=== PATIENT | male | born 1980 | race Caucasian/White ===

== ENCOUNTER 2020-05-31 13:36 | Emergency (ER) | payer OTHER, SELFPAY ==
--- NOTE | ~2020-05-31 | XR_ITS ---
XR wrist RT min 3V 05/31/2020 14:05 INDICATION: Right wrist pain PROCEDURE: For views right wrist COMPARISON: No prior studies for comparison. FINDINGS: Fracture, dislocation or subluxation is not identified. The soft tissues appear within norm al limits. No foreign bodies are identified. IMPRESSION: 1: NO ACUTE BONE OR JOINT ABNORMALITY IDENTIFIED. Reviewed, dictated and finalized at location B.
--- NOTE | ~2020-05-31 | XR_ITS ---
XR ankle RT min 3V, XR foot RT min 3V 05/31/2020 14:05 Indication: Right foot and ankle pain after fall Procedure: 4 views right ankle and 4 views right foot Comparison: No prior studies for comparison. Findings: There is a mildly displaced oblique intra-articular fracture posterior malleolus. Ankle mor tise otherwise intact. Talar dome is unremarkable. There is osteoarthritis of the first MTP joint wit h subluxation dorsally. Lisfranc joint intact. Impression: 1: Mildly displaced oblique intra-articular fracture posterior malleolus. 2: Dorsal subluxation of the first digit at the MTP joint. Reviewed, dictated and finalized at location B. Impression: 1: Mildly displaced oblique intra-articular fracture posterior malleolus. 2: Dorsal subluxation of the first digit at the MTP joint. Impression: 1: Mildly displaced oblique intra-articular fracture posterior malleolus. 2: Dorsal subluxation of the first digit at the MTP joint.
--- NOTE | ~2020-05-31 | XR_ITS ---
EXAMINATION: XR pelvis 1-2V DATE: 05/31/2020 14:05 INDICATION: Pelvic pain post fall TECHNIQUE: An anteroposterior view of the pelvis was obtained. COMPARISON: None. FINDINGS: Alignment is normal. No fracture. Joint spaces are normal. Soft tissues are unremarkable. IMPRESSION: 1. Negative pelvis radiographs. Reviewed, dictated and finalized at location A.
[2020-05-31 13:39] VITALS: BP 146/99; PULSE 78; RESP 20; TEMP 36.7; O2SAT 99
--- NOTE | 2020-05-31 13:45 | ED.LOWEXIN ---
HPI - Extremity Injury (Lower) General Chief Complaint: Extremity Injury, Lower Stated Complaint: Fall - R ankle deformity Source: patient Mode of arrival: ambulatory Limitations: no limitations History of Present Illness HPI Narrative: Patient is a 39-year-old male who presents to emergency department for evaluation of injuries related to falling down 10 stairs this morning patient presents per EMS noting right ankle pain right wrist pain and right hip pain patient denies other injuries or trauma was given 4 mg of morphine in route with improvement patient denies head injury syncope loss of consciousness Related Data Home Medications Medication Instructions Recorded Confirmed Unable to Obtain Home Medications 05/31/20 05/31/20 Allergies Allergy/AdvReac Type Severity Reaction Status Date / Time amoxicillin Allergy Unknown Verified 09/01/12 12:09 codeine Allergy Unknown Verified 09/01/12 12:09 tramadol Allergy Unknown Verified 09/01/12 12:09 Honey Bee Allergy Unknown Swelling Uncoded 08/09/19 16:17 Review of Systems Review of Systems: All systems reviewed & are unremarkable except as noted in HPI and below PMFSH Past Medical History Medical History (Updated 05/31/20 @ 15:16 by Dipak Johnson PA-C) PTSD (post-traumatic stress disorder) Family History Family History (Updated 07/13/14 @ 07:13 by DOCTOR UNKNOWN) Mother Family history of chronic obstructive pulmonary disease Family history of mental disorder Other Depression Social History Social History Smoking end date: 11/16/11 Alcohol intake: never Exam Narrative: Exam Narrative: GENERAL: Well-appearing, well-nourished, and in no acute distress. HEAD: Normocephalic, atraumatic. EYES: PERRLA and EOMI. ENT: Nares clear, no rhinorrhea or epistaxis. Mucous membranes moist. NECK: Supple. No adenopathy or masses. CHEST: Clear to auscultation. No respiratory distress. No wheezes rales or rhonchi HEART: Regular rate and rhythm. No murmur heard. Normal peripheral pulses. EXTREMITIES: Tenderness of the right wrist and hip with no deformities noted. Tenderness to the lateral aspect of the right ankle with minimal swelling noted. No cervical thoracic or lumbar tenderness SKIN: Warm, dry, no rash. NEURO: No focal deficits. Alert and oriented x3. Cranial nerves II through XII grossly intact. Neurovascularly intact. Normal speech PSYCH: Normal mood and affect. Course Course Emergency Course: Patient in the room aware of case findings treatment plan and diagnosis agreeing to follow-up with orthopedic surgery Consultations Consultation #1: Discussed case with orthopedic surgery who would like the patient to be splinted and will follow him in clinic Date: 05/31/20 Time: 15:13 Vital Signs Vital signs: Vital Signs Temperature 98.0 F 05/31/20 13:39 Pulse Rate 78 05/31/20 13:39 Respiratory Rate 20 05/31/20 13:39 Blood Pressure 146/99 H 05/31/20 13:39 Pulse Oximetry 99 05/31/20 13:39 Temperature 98.0 F 05/31/20 13:39 Pulse Rate 78 05/31/20 13:39 Respiratory Rate 05/31/20 13:39 Blood Pressure 146/99 H 05/31/20 13:39 Pulse Oximetry 99 05/31/20 13:39 MDM - Extremity Injury (Lower) MDM Narrative Medical decision making narrative: Patients injury or pain is consistent with musculoskeletal etiology. No signs of neurological or vascular compromise on exam. Compartments and tisues are soft without signs of compartment syndrome. Pain is felt appropriate for further evaluation on an outpatient basis. Patient was placed in splint will follow with orthopedic surgery Imaging Data Radiologist's impression: ITS Impressions Wrist X-Ray 05/31/20 14:11 IMPRESSION: 1: NO ACUTE BONE OR JOINT ABNORMALITY IDENTIFIED. Ankle X-Ray 05/31/20 14:14 Impression: 1: Mildly displaced oblique intra-articular fracture posterior malleolus. 2: Dorsal subluxation
[2020-05-31] MEDS: IBUPROFEN IV 800 MG/200 ML 800 MG/200 ML BAG 400 MG IVPB (14:37)
[2020-05-31 15:49] VITALS: BP 112/78; PULSE 64; RESP 16; O2SAT 99
--- NOTE | 2020-06-13 20:51 | PC.NURSE ---
late entry to chart- splint applied to right leg. positive pms
== END 2020-05-31 15:52 | disposition home or self-care (01) ==
PROVIDERS: Emergency Provider Emergency Medicine; PCP Internal Medicine
DX: S82.891A Other fracture of right lower leg, initial encounter for closed fracture (principal); W10.9XXA Fall (on) (from) unspecified stairs and steps, initial encounter
CPT/HCPCS: 29515; 72170; 73110; 73610; 73630; 96365; 96375; 99284; A9270; J1741; J3360

== ENCOUNTER 2020-06-08 01:25 | Outpatient (CLI) | payer OTHER, SELFPAY ==
[2020-06-09 18:47] LABS: SARS-CoV-2 RNA PCR Negative
== END 2020-06-08 01:26 | disposition home or self-care (01) ==
LOC: ANHCOVIDDT 01:26
PROVIDERS: PCP Internal Medicine; Visit Provider Orthopaedic Surgery
DX: Z01.812 Encounter for preprocedural laboratory examination (principal); Z11.59 Encounter for screening for other viral diseases
CPT/HCPCS: 87635; C9803; U0003

== ENCOUNTER 2020-06-14 11:02 | Outpatient (CLI) | payer OTHER, SELFPAY ==
--- NOTE | ~2020-06-14 | MR_ITS ---
EXAMINATION: MR foot RT wo con DATE: 06/14/2020 12:28 INDICATION: Unspecified dislocation of right toes. TECHNIQUE: Magnetic resonance imaging (MRI) of the right foot was performed without intravenous contr ast. Sequences included sagittal T1-weighted FSE and STIR FSE, long-axis PD-weighted FS FSE and PD-we ighted FSE, and short-axis PD-weighted FS FSE and T1-weighted FSE. COMPARISON: Right foot radiographs 05/31/2020 FINDINGS: There is dorsal dislocation of first proximal phalanx with respect to first metatarsal. No fracture. There is mild bone marrow edema in first metatarsal and first proximal phalanx, likely stre ss reaction. There are osteophytes at first metatarsophalangeal joint. There is a small effusion of f irst metatarsophalangeal joint. Lisfranc ligament is intact. There is mild tendinopathy of flexor mary grace lucis longus. There is extensive subcutaneous edema dorsally. IMPRESSION: 1. Dorsal dislocation of first proximal phalanx with respect to the metatarsal. Reviewed, dictated and finalized at location A.
== END 2020-06-14 11:03 | disposition home or self-care (01) ==
PROVIDERS: PCP Internal Medicine; Visit Provider Orthopaedic Surgery
DX: S93.104A Unspecified dislocation of right toe(s), initial encounter (principal); S82.391A Other fracture of lower end of right tibia, initial encounter for closed fracture; X58.XXXA Exposure to other specified factors, initial encounter
CPT/HCPCS: 73718

== ENCOUNTER 2020-06-15 00:21 | Outpatient (CLI) | payer OTHER, SELFPAY ==
[2020-06-15 20:43] LABS: SARS-CoV-2 RNA PCR Negative
== END 2020-06-15 00:22 | disposition home or self-care (01) ==
LOC: ANHCOVIDDT 00:21
PROVIDERS: PCP Internal Medicine; Visit Provider Orthopaedic Surgery
DX: Z01.818 Encounter for other preprocedural examination (principal); Z11.59 Encounter for screening for other viral diseases
CPT/HCPCS: 87635; C9803; U0003

== ENCOUNTER 2020-06-18 01:05 | Day surgery (SDC) | payer OTHER, SELFPAY ==
[2020-06-07 13:25] VITALS: BMI 24.2
--- NOTE | 2020-06-11 07:01 | WPDHPUPDATE1 ---
History and Physical Update Update Date/Time: 06/11/20 07:01 History and Physical has been reviewed, including an updated exam of the patient. There are NO changes in the patient's condition. Covid test negative. Risks, benefits, and alternatives have been discussed and questions answered. Patient agrees to proceed with procedure.
--- NOTE | 2020-06-11 07:37 | WPDANESEPPF ---
Anes - Initial Pre Proc Eval Procedure: Operation Date: 06/11/20 12:00 Proposed Procedures p Open Reduction Internal Fixation Right Ankle Fracture, Repair Right Hallux Dislocation - Juwan Leonard MD Date/Time: 06/11/20 07:37 Surgeon: Juwan Leonard MD Pre Op Diagnosis: Right Hallux Dislocation/ Right Ankle Fx Patient Data Age: 39 Gender: M Height: 1.68 m Weight: 68.04 kg Allergies Allergy/AdvReac Type Severity Reaction Status Date / Time amoxicillin Allergy Unknown Swelling Verified 06/18/20 11:32 bee venom protein (honey bee) Allergy Unknown Swelling Verified 06/18/20 11:32 codeine Allergy Unknown Headache, Verified 06/18/20 11:32 lips swelling tramadol Allergy Unknown testicle Verified 06/18/20 11:32 pain Home Medications Medication Instructions Recorded Confirmed Type albuterol sulfate 1 - 2 puff INHALATION DIRECTED 06/07/20 06/18/20 History PRN alprazolam 1 mg PO QID PRN 06/07/20 06/18/20 History clonazepam 1 mg PO HS 06/07/20 06/18/20 History fluticasone propionate 1 spray INTRANASAL DAILY PRN 06/07/20 06/18/20 History gabapentin 300 mg PO DAILY 06/07/20 06/18/20 History propranolol 20 mg PO BID 06/07/20 06/18/20 History sertraline 75 mg PO DAILY 06/13/20 06/18/20 History hydrocodone 5 mg-acetaminophen 325 1 tablet PO Q6H PRN #20 tablet 06/22/20 Rx mg tablet Patient hx anesthesia problems: none Family hx anesthesia problems: none PMFSH Past Medical History Medical History (Updated 06/08/20 @ 08:00 by Marietta Buenrostro, RT(R)) Anxiety Asthma BMI 25.0-25.9,adult Chronic GERD Chronic headaches Closed fracture of right ankle Constipation Depression Dislocation of toe of right foot Fracture of posterior malleolus of right tibia GERD (gastroesophageal reflux disease) Headache Nausea & vomiting PTSD (post-traumatic stress disorder) Right foot injury Seasonal allergies Stomach pain Vision abnormalities Weight loss Social History Social History Smoking packs per day: 1 Smoking cigarettes per day: 20.0 Years smoked: 6 Smoking pack-years: 6.00 Smoking status: Former smoker Smoking end date: 11/16/11 Additional smoking assessment comments: QUIT 3 YEARS AGO Alcohol intake: current Drinks per week: 35 Substance use: current Substance use type: marijuana Other substance usage details: 2002- ACID, COCAINE Last use: 06/07/2020 Gender identity (if verbalized by the patient): Male Anes - Eval Final PreProcedure Day of Procedure 06/11/20 07:37 Patient weight: normal Heart: regular rate and rhythm Lungs: clear to auscultation and normal air movement Airway: Mallampati scale class II Neurological: alert and oriented Last oral intake: >/= 8 hours ASA classification: III Emergent: no Anesthetic plan: proceed Anesthesia type and monitoring: general LMA and standard monitoring Informed Consent: The patient's anesthetic plan and its attendant risks and benefits were discussed with the patient/family/POA. Questions were solicited and answers provided to the satisfaction of the patient/family/POA.
[2020-06-18] VITALS (7 sets, daily range): BP systolic 107–131; BP diastolic 65–86; PULSE 60–78; RESP 9–16; TEMP 36.3–36.7; O2SAT 98–100; BMI 22.7
--- NOTE | ~2020-06-18 | XR_ITS ---
EXAMINATION: XR surgery orthopedic DATE: 06/18/2020 15:26 INDICATION: ORIF right ankle and right foot TECHNIQUE: Fluoroscopic spot images of the right foot and ankle were obtained during procedure perfor med by Dr. Leonard. Radiologist was not present for the imaging or procedure. The amount of fluorosco py time used during this procedure was 1.0 minutes. COMPARISON: Radiographs dated 05/31/2020 and 06/07/2020 and MRI dated 06/14/2020 FINDINGS: Initial images demonstrate anterior to posterior directed leg screw fixation across the posterior mal leolar fracture at the distal tibia. Alignment post fixation appears essentially anatomic including a congruent ankle mortise. The previously dislocated first metatarsophalangeal joint is been reduced t o essentially anatomic alignment. Round lucencies at the head of the first metatarsal and at the prox imal diaphysis of the first proximal phalanx likely represent suture anchor tracks for stabilization of the first metatarsophalangeal joint. No acute fractures identified. Joint spaces in the visualized right foot and ankle appear normal. IMPRESSION: 1. Fluoroscopy utilized during fixation of a posterior malleoli fracture at the right ankle and reduc tion and fixation of a previously dislocated right first metatarsophalangeal dislocation. See procedu re note for further detail. Reviewed, dictated and finalized at location A. IMPRESSION: 1. Fluoroscopy utilized during fixation of a posterior malleoli fracture at the right ankle and reduction and fixation of a previously dislocated right first metatarsophalangeal dislocation. See procedure note for further detail.
--- NOTE | 2020-06-18 11:55 | WPDANESEPPF ---
Anes - Initial Pre Proc Eval Procedure: Operation Date: 06/18/20 13:00 Proposed Procedures p Open Reduction Internal Fixation Right Ankle Fracture, Repair Right Hallux Dislocation - Juwan Leonard MD Date/Time: 06/18/20 11:55 Surgeon: Juwan Leonard MD Pre Op Diagnosis: Right Hallux Dislocation/ Right Ankle Fx Patient Data Age: 39 Gender: M Height: 5 ft 6 in Weight: 64 kg Allergies Allergy/AdvReac Type Severity Reaction Status Date / Time amoxicillin Allergy Unknown Swelling Verified 06/18/20 11:32 bee venom protein (honey bee) Allergy Unknown Swelling Verified 06/18/20 11:32 codeine Allergy Unknown Headache, Verified 06/18/20 11:32 lips swelling tramadol Allergy Unknown testicle Verified 06/18/20 11:32 pain Home Medications Medication Instructions Recorded Confirmed Type albuterol sulfate 1 - 2 puff INHALATION DIRECTED 06/07/20 06/18/20 History PRN alprazolam 1 mg PO QID PRN 06/07/20 06/18/20 History clonazepam 1 mg PO HS 06/07/20 06/18/20 History fluticasone propionate 1 spray INTRANASAL DAILY PRN 06/07/20 06/18/20 History gabapentin 300 mg PO DAILY 06/07/20 06/18/20 History propranolol 20 mg PO BID 06/07/20 06/18/20 History hydrocodone 5 mg-acetaminophen 325 1 tablet PO Q6H PRN #20 tablet 06/12/20 06/18/20 Rx mg tablet sertraline 75 mg PO DAILY 06/13/20 06/18/20 History Patient hx anesthesia problems: none Family hx anesthesia problems: none PMFSH Past Medical History Medical History (Updated 06/08/20 @ 08:00 by Marietta Buenrostro, RT(R)) Anxiety Asthma BMI 25.0-25.9,adult Chronic GERD Chronic headaches Closed fracture of right ankle Constipation Depression Dislocation of toe of right foot Fracture of posterior malleolus of right tibia GERD (gastroesophageal reflux disease) Headache Nausea & vomiting PTSD (post-traumatic stress disorder) Right foot injury Seasonal allergies Stomach pain Vision abnormalities Weight loss Social History Social History Smoking packs per day: 1 Smoking cigarettes per day: 20.0 Years smoked: 6 Smoking pack-years: 6.00 Smoking status: Former smoker Smoking end date: 11/16/11 Additional smoking assessment comments: QUIT 3 YEARS AGO Alcohol intake: current Drinks per week: 35 Substance use: current Substance use type: marijuana Other substance usage details: 2002- ACID, COCAINE Last use: 06/07/2020 Gender identity (if verbalized by the patient): Male Anes - Eval Final PreProcedure Day of Procedure 06/18/20 11:55 Patient weight: normal Heart: regular rate and rhythm Lungs: clear to auscultation Airway: Mallampati scale class II Neurological: alert and oriented Last oral intake: >/= 8 hours ASA classification: II Emergent: no Anesthetic plan: proceed Anesthesia type and monitoring: general and standard monitoring Informed Consent: The patient's anesthetic plan and its attendant risks and benefits were discussed with the patient/family/POA. Questions were solicited and answers provided to the satisfaction of the patient/family/POA.
[2020-06-18] MEDS: ACETAMINOPHEN 500 MG TABLET 1000 MG PO (12:08)
[2020-06-18] MEDS: LACTATED RINGERS 1,000 ML 30 ML IV CONT ×2 (12:08→15:42)
[2020-06-18] MEDS: KETOROLAC 15 MG/ML VIAL (*BKC) IV PUSH (12:08)
--- NOTE | 2020-06-18 12:13 | SUR.PREOP ---
1115; PT ARRIVED WEARING BOOT. PT HAS CRUTCHES. PT USING CRUTCHES AND STILL PLACING SOME WEIGHT ON RT FOOT.
--- NOTE | 2020-06-18 12:14 | WPDHPUPDATE1 ---
History and Physical Update Update Date/Time: 06/18/20 12:14 History and Physical has been reviewed, including an updated exam of the patient. There are NO changes in the patient's condition. Covid test negative. Risks, benefits, and alternatives have been discussed and questions answered. Patient agrees to proceed with procedure.
--- NOTE | 2020-06-18 12:14 | SUR.PREOP ---
1200; DR WILLARD AT BEDSIDE. NOTIFIED OF PT WALKING WITH SOME WEIGHT BEARING WITH CRUTCHES
--- NOTE | 2020-06-18 12:25 | SUR.PREOP ---
INCENTIVE SPIROMETER TEACHING PERFORMED. PT PULLED 2400.
[2020-06-18] MEDS: CLINDAMYCIN 900 MG/NS 50 ML 900 MG/50 ML PIGGYBACK 50 MG IVPB (12:54)
--- NOTE | 2020-06-18 13:41 | SUR.PREOP ---
1255; CALLED TO UPDATE PT'S FRIEND THAT [facility] IS GOING TO OR. FRIEND, THOMAS, STATES HE TRIED TO GET A KNEE SCOOTER FOR [facility] BUT THE PAPERWORK WAS MISSING SOME INFORMATION. 1340; CALLED DR PAZ OFFICE. SPOKE TO OFFICE STAFF. THEY WILL CALL THOMAS REGARDING KNEE SCOOTER.
--- NOTE | 2020-06-18 15:50 | PM.PROC ---
Procedure Note - Detailed Date of procedure: 06/18/20 Pre-op diagnosis: Right Hallux Dislocation/ Right Ankle Fx Post-op diagnosis: same Procedure performed: ORIF rt ankle fx, open repair right hallux mtp dislocation Description of procedure: Indications: Patient is [id number] gentleman fell and sustained a right ankle posterior malleolus fracture as well as the hallux metatarsophalangeal dislocation which was irreducible and closed fashion. He presents for treatment. He initially was seen in the emergency room and referred to the on-call physician. This physician transferred the patient for for further specialty care. Ultimately surgery was delayed secondary to needing COVID-19 testing and and MRI which was delayed by insurance. He presents now for operative treatment having had a negative COVID-19 test. What was done: Patient identified in the preoperative holding. Informed consent given. Operative extremity marked. Patient received intravenous antibiotics. Patient brought to the operating room where underwent general anesthetic by anesthesia team. Positioned supine on operating room table. Time-out performed confirming the patient, site of the surgery and the plan. Right lower extremity prepped draped usual sterile surgical fashion using a ChloraPrep skin solution. Foot and ankle exsanguinated and a thigh tourniquet inflated to 250 mmHg. We dressed the ankle 1st. Image intensification was brought and confirmed location the lag screw for the posterior malleolus fracture. Image intensification confirmed reduction of the posterior fracture. The incision was made lateral to the tibialis anterior and blunt dissection was carried down to the anterior tibia. Guide pin placed and verified with image intensification. This was measured drilled and a 40 mm x 4.0 mm cannulated screw placed with good fixation in good position. Ankle taken through full range of motion and noted to be stable. We then addressed the hallux. Small incisions were made next to the lateral and medial sesamoids after guidance with image intensification. Careful dissection with protection of the sensory nerves. We then passed a fiber tape through a airplane pilot helper hole at the proximal extent of the medial and lateral sesamoid. This was then preserved for later fixation. A dorsal longitudinal incision was then made over the hallux metatarsophalangeal joint. Hemostasis controlled electrocautery. Dorsal capsulotomy performed and the capsule was released medially and laterally off the 1st metatarsal head. The hallux was dislocated dorsally and a fixed position. Once the soft tissue was released the joint was able to be distracted. It appeared that the lateral sesamoid had become interposition in the joint locking it into dislocation. Once soft tissue was freed up the joint was able to be reduced. On the plantar aspect the capsule was completely shredded and there was no plantar plate or capsule for ultimate direct repair. Secondary repair was performed with a internal brace. 2.5 mm drill hole placed at the proximal phalanx and FiberTape was passed through this the plantar aspect. Similar hole placed in the 1st metatarsal head and the tape was passed up through this. With toe in a corrected position after thorough irrigation the FiberTape was locked in place with the 3.0 mm PushLock anchor. The FiberTape which is been passed through the sesamoids were passed with the soft tissue Passer to the medial lateral aspect of proximal phalanx and then was secured into the dorsum of the proximal phalanx with a 3.0 mm PushLock anchor. Toe was noted to be stable and had good range of motion. Thorough irrigation done. Capsule then repaired with 0 Vicryl interrupted suture. Subcutaneous tissue repaired with 3 0 Monocryl interrupted suture. Skin repaired with 4 O running suture. The interval was closed with 3 0 Monocryl interrupted subcuticular stitches 4 O nylon for the skin. Sterile dressing applied. B
--- NOTE | 2020-06-18 16:34 | SUR.PHASEI ---
1634-PT DOZING OFF/ON BUT WHEN AROUSING, STATES PAIN NOT BETTER BUT STATES HE IS ABLE TO DOZE OFF BETTER. FLACC 1-2.
== END 2020-06-18 17:20 | disposition home or self-care (01) ==
PROVIDERS: PCP Internal Medicine; Visit Provider Orthopaedic Surgery
PROC: (CPT 27766; principal; 2020-06-18 13:00)
DX: S93.121A Dislocation of metatarsophalangeal joint of right great toe, initial encounter (principal); S82.51XA Displaced fracture of medial malleolus of right tibia, initial encounter for closed fracture; W19.XXXA Unspecified fall, initial encounter; J45.909 Unspecified asthma, uncomplicated; F41.8 Other specified anxiety disorders; F43.10 Post-traumatic stress disorder, unspecified; Z87.891 Personal history of nicotine dependence; F12.90 Cannabis use, unspecified, uncomplicated
CPT/HCPCS: 27766; 28645; A9270; C1713; C1769; J1100; J1885; J2250; J2405; J2704; J3010; J7120